=== PATIENT | male | born 1975 | race Two or more races ===

== ENCOUNTER 2024-07-02 10:52 | Emergency (ER) | payer OTHER ==
[~2024-07-02] VITALS: Ht 152.4 cm; Wt 76.2 kg
[2024-07-02] MEDS ORDERED: DEXAMETHASONE SODIUM PHOSPHATE 4 MG/ML VIAL IM STA (11:58)
[2024-07-02] MEDS ORDERED: ORPHENADRINE CITRATE 30 MG/ML AMPUL IM STA (11:59)
[2024-07-02] MEDS ORDERED: DEXAMETHASONE SODIUM PHOSPHATE 4 MG/ML VIAL ONE (12:27)
[2024-07-02] MEDS ORDERED: ORPHENADRINE CITRATE 30 MG/ML AMPUL ONE (12:27)
== END 2024-07-02 14:04 | disposition home or self-care (01) ==
LOC: ER 10:55
DX: M25.551 Pain in right hip (principal); Z88.8 Allergy status to other drugs, medicaments and biological substances

== ENCOUNTER 2024-12-29 16:40 | Emergency (ER) | payer OTHER ==
[~2024-12-29] VITALS: Ht 177.8 cm; Wt 73.9 kg
[2024-12-29] MEDS ORDERED: DEXAMETHASONE SODIUM PHOSPHATE 4 MG/ML VIAL IM ONE (17:30)
[2024-12-29] MEDS ORDERED: NORFLEX100MG PO (20:14)
[2024-12-29] MEDS ORDERED: MEDROLPACK PO (20:14)
[2024-12-29] MEDS ORDERED: ORPHENADRI30 MG/1 M1 IM (20:14)
== END 2024-12-29 20:10 | disposition home or self-care (01) ==
LOC: ER 16:40
DX: M54.50 Low back pain, unspecified (principal); Z88.6 Allergy status to analgesic agent; M51.379 Other intervertebral disc degeneration, lumbosacral region without mention of lumbar back pain or lower extremity pain